=== PATIENT | female | born 1940 ===

== ENCOUNTER 2024-03-22 08:52 | Inpatient (IN) | payer MEDICARE ==
[2024-03-22] MEDS ORDERED: SYNTHROID137 MCG PO (14:38)
[2024-03-22] MEDS ORDERED: KEFLEX 500 MG E2 CAP PO (14:41)
[2024-03-22] MEDS ORDERED: LATANOPROST 2.2.5 ML OP (14:44)
[2024-03-22] MEDS ORDERED: LEXAPRO10 MG PO (14:51)
[2024-03-22] MEDS ORDERED: LORazepam 2 MG/ML VIAL IM PRN (15:05)
[2024-03-22] MEDS ORDERED: LORazepam 1 MG TAB PO PRN (15:05)
[2024-03-22] MEDS ORDERED: Water, Sterile 10 ML VIAL IM PRN (15:15)
[2024-03-22] MEDS ORDERED: Ziprasidone Mesylate 20 MG VIAL IM PRN (15:15)
[2024-03-22] MEDS ORDERED: ACETAMINOPHEN 325 MG TAB PO PRN (18:40)
[2024-03-22] MEDS ORDERED: Magnesium Hydroxide 30 ML UDC PO PRN (18:40)
[2024-03-22] MEDS ORDERED: MG-AL HYDROXIDE/SIMETICONE 30 ML UDC PO PRN (18:40)
[2024-03-22] MEDS ORDERED: Menthol/Zinc Oxide 4 GM THIN T PRN (18:45)
[2024-03-22 20:00] VITALS: BP 131/75
[2024-03-22] MEDS ORDERED: Memantine Hydrochloride 5 MG TAB PO SCH (21:00)
[2024-03-22] MEDS ORDERED: Mirtazapine 15 MG TAB PO SCH (21:00)
[2024-03-23] MEDS ORDERED: Levothyroxine Sodium 112 MCG TAB PO SCH (06:00)
[2024-03-23 06:41] LABS: BASO # 0.1 10*3/uL (0.0-0.1); BASO % 1.4 % (0.0-1.0); EOS # 0.2 10*3/uL (0.0-0.4); HEMATOCRIT 36.2 % (37.0-47.0); LYMPH # 1.6 10*3/uL (1.3-4.4); LYMPH % 27.3 % (27.0-41.0); MEAN CELL VOLUME 81.2 fl (81.0-99.0); MEAN CORPUSCULAR HGB 24.9 pg (27.0-31.0); MEAN CORPUSCULAR HGB CONC 30.7 g/dl (33.0-37.0); MEAN PLATELET VOLUME 8.9 fl (9.6-12.3); MONO # 0.8 10*3/uL (0.1-1.0); MONO % 13.2 % (3.0-9.0); NEUT # 3.1 10*3/uL (2.3-7.9); NEUT % 53.9 % (47.0-73.0); PLATELET COUNT AUTOMATED 261 10*3/uL (130-400); RED BLOOD COUNT 4.46 10*6/uL (4.10-5.10); WHITE BLOOD COUNT 5.7 10*3/uL (4.8-10.8)
[2024-03-23 07:04] LABS: ALKALINE PHOSPHATASE 78 U/L (46-116); BUN 12 mg/dl (9-23); CHLORIDE 108 mmol/L (98-107); CHOLESTEROL 162 mg/dL (<200); LDL CHOLESTEROL 79 mg/dL (9-159); POTASSIUM 3.8 mmol/L (3.4-5.1); SGPT/ALT 7 U/L (5-49); TOTAL PROTEIN 6.6 gm/dL (6.0-8.0); TRIGLYCERIDES 54 mg/dl (<150); VITAMIN D, 25-HYDROXY 32.4 ng/mL (30-100)
[2024-03-23 08:00] VITALS: BP 131/82
[2024-03-23] MEDS ORDERED: Memantine Hydrochloride 5 MG TAB PO SCH (09:00)
[2024-03-23] MEDS ORDERED: Cholecalciferol 2,000 UNIT TABLET (50 MCG) PO SCH (09:00)
[2024-03-23] MEDS ORDERED: Rivastigmine Tartrate 4.6 MG/24 HR PATCH T SCH (09:00)
[2024-03-23] MEDS ORDERED: CEPHALEXIN 500 MG CAP PO SCH (10:00)
[2024-03-23] MEDS ORDERED: LATANOPROST 0.005% 2.5 ML BOTTLE OPH SCH (10:00)
[2024-03-23 20:00] VITALS: BP 114/69
[2024-03-24 08:00] VITALS: BP 114/67
[2024-03-24] MEDS ORDERED: Rivastigmine Tartrate 9.5 MG/24 HR PATCH T SCH (09:00)
[2024-03-24] MEDS ORDERED: hydrOXYzine pamoate 25 MG CAP PO PRN (09:00)
[2024-03-24] MEDS ORDERED: Loperamide Hydrochloride 2 MG CAP PO PRN (09:15)
[2024-03-24 20:00] VITALS: BP 108/66
[2024-03-25 07:40] VITALS: BP 105/61
[2024-03-25 20:00] VITALS: BP 92/68
[2024-03-25] MEDS ORDERED: Memantine Hydrochloride 10 MG TAB PO SCH (21:00)
[2024-03-26 08:00] VITALS: BP 127/84
[2024-03-26 20:00] VITALS: BP 109/75
[2024-03-27 08:00] VITALS: BP 125/69
[2024-03-27] MEDS ORDERED: RIVASTIGMINE 13.3 MG/24 HR TDM T SCH (09:00)
[2024-03-27] MEDS ORDERED: hydrOXYzine pamoate 25 MG CAP PO SCH (18:00)
[2024-03-27 20:54] VITALS: BP 127/72
[2024-03-28 08:24] VITALS: BP 134/83
[2024-03-28 20:00] VITALS: BP 110/68
[2024-03-29 07:39] VITALS: BP 119/79
[2024-03-29] MEDS ORDERED: Prochlorperazine Edisylate 10 MG/2 ML VIAL IM ONE (13:10)
[2024-03-29 20:00] VITALS: BP 124/64
[2024-03-30 07:54] VITALS: BP 129/69
[2024-03-30] MEDS ORDERED: MEMANTINE HCL10 MG PO (08:39)
[2024-03-30] MEDS ORDERED: MIRTAZAPINE15 M2 PO (08:39)
[2024-03-30] MEDS ORDERED: HYDROXYZINE PAM25 M1 PO (08:39)
[2024-03-30] MEDS ORDERED: RIVASTIGMINE1 EAC2 T (08:39)
== END 2024-03-31 01:07 | DRG 885 ==
LOC: 3N 08:52
PROVIDERS: ADMIT Psychiatry & Neurology Psychiatry; ATTEND Psychiatry & Neurology Psychiatry
PROC: GZHZZZZ Group Psychotherapy (ICD-10-PCS; principal; 2024-03-23)
PROC: GZ51ZZZ Individual Psychotherapy, Behavioral (ICD-10-PCS; 2024-03-23)
DX: F33.9 Major depressive disorder, recurrent, unspecified (principal); R45.851 Suicidal ideations; E03.9 Hypothyroidism, unspecified; D50.9 Iron deficiency anemia, unspecified; F03.90 Unspecified dementia, unspecified severity, without behavioral disturbance, psychotic disturbance, mood disturbance, and anxiety; Z88.8 Allergy status to other drugs, medicaments and biological substances; Z82.3 Family history of stroke; Z82.0 Family history of epilepsy and other diseases of the nervous system